=== PATIENT | male | born 1970 | race Two or more races ===

== ENCOUNTER 2020-04-23 13:54 | Inpatient (IN) | payer BC, OTHER ==
[~2020-04-23] VITALS: Ht 170.2 cm; Wt 75.7 kg
--- NOTE | 2020-04-23 14:00 | NUR ---
placed on nrb 15l. satting 96%. vs checked. hooken on monitor. iv access started blood draw done sent to lab.
[2020-04-23] MEDS ORDERED: LOSA50TA39 PO (14:37)
[2020-04-23] MEDS ORDERED: FLUT1DIS3 IH (14:37)
[2020-04-23] MEDS ORDERED: MONT10TA22 PO (14:37)
[2020-04-23] MEDS ORDERED: ACET-2605 PO (14:37)
[2020-04-23] MEDS ORDERED: ALBU1.257 IH (14:37)
[2020-04-23] MEDS ORDERED: IBUP-51 PO (14:37)
[2020-04-23] MEDS ORDERED: ALBUTEROL FS 2.5 MG/3 ML VIAL.NEB ONE (14:41)
[2020-04-23 14:46] LABS: BASOPHILS % (AUTO) 0.3 % (0.0-2.0); EOSINOPHILS % (AUTO) 2.1 % (0.0-6.0); HEMATOCRIT 42 % (39-51); HEMOGLOBIN 13.9 g/dL (13.5-17.5); LYMPHOCYTES # (AUTO) 0.8 /CMM (0.8-4.8); LYMPHOCYTES % (AUTO) 5.6 % (20.0-44.0); MEAN CORPUSCULAR HGB CONC 33 g/dl (31.0-36.0); MEAN CORPUSCULAR VOLUME 93 fL (80-96); MONOCYTES # (AUTO) 0.3 /CMM (0.1-1.30); MONOCYTES % (AUTO) 2.5 % (2.0-12.0); NEUTROPHILS # (AUTO) 12.6 /CMM (1.8-8.9); NEUTROPHILS % (AUTO) 89.5 % (43.0-81.0); PLATELET COUNT (AUTO) 215 /CMM (150-450); RED BLOOD CELL COUNT(AUTO) 4.47 MIL/uL (4.5-6.0)
[2020-04-23] MEDS ORDERED: ACETAMINOPHEN 325 MG TABLET ONE ×2 (14:53→22:11)
[2020-04-23] MEDS ORDERED: methylPREDNISolone SOD SUCC 125 MG/2ML VIAL ONE (14:53)
[2020-04-23] MEDS ORDERED: ALBUTEROL FS 2.5 MG/3 ML VIAL.NEB NEB ONE (15:00)
[2020-04-23] MEDS ORDERED: methylPREDNISolone SOD SUCC 125 MG/2ML VIAL IV ONE (15:00)
[2020-04-23] MEDS ORDERED: ACETAMINOPHEN 325 MG TABLET PO ONE (15:00)
--- NOTE | 2020-04-23 15:00 | NUR ---
asked dr. dunn is we can put pt on hiflow o2, pt desatting on nrb at 15L only satting at 89-90%. stgilated casandra. rt called. hi flow o2 started 60L/100% now satting at 98%
[2020-04-23 15:09] LABS: ALANINE AMINOTRANSFERASE 67 U/L (12-78); ALBUMIN 2.5 g/dL (3.4-5.0); ALKALINE PHOSPHATASE 200 U/L (46-116); ASPARTATE AMINOTRANSFERASE 47 U/L (15-37); B-TYPE NATRIURETIC PEPTIDE 736 PG/ML (0-125); BILIRUBIN,TOTAL 0.9 mg/dL (0.2-1.0); CALCIUM, SERUM 8.5 mg/dL (8.5-10.1); CARBON DIOXIDE 25 mmol/L (21-32); CHLORIDE 105 mmol/L (98-107); CREATININE 1.3 mg/dL (0.6-1.3); GLUCOSE 98 mg/dL (74-106); POTASSIUM 3.4 mmol/L (3.5-5.1); SODIUM SERUM 140 mmol/L (136-145); UREA NITROGEN, BLOOD 14 mg/dL (7-18)
[2020-04-23 16:05] LABS: CREATINE KINASE, TOTAL 88 U/L (39-308); FERRITIN 647 ng/mL (8-388)
[2020-04-23 16:09] LABS: C-REACTIVE PROTEIN 16.9 mg/dL (0.0-0.9)
[2020-04-23 16:23] LABS: ABG BASE EXCESS -0.4 mmol/L; ABG OXYGEN SATURATION 94.4 % (92.0-98.5); ABG PCO2 26.7 mmHg (35.0-45.0); ABG PH 7.516 (7.350-7.450); ABG PO2 71.4 mmHg (75.0-100.0); AaDO2 614.9 mmHg; COHb 0.5 % (0.5-1.5); MetHb 0.5 % (0.0-1.5); O2Hb 93.5 % (94.0-97.0); SITE, ABG Right Radial; VENT MODE, BG HFNC 60L 100%
[2020-04-23] MEDS ORDERED: HYDROCODONE/APAP 5/325MG TABLET PO PRN (16:30)
[2020-04-23] MEDS ORDERED: MAG HYDROX/AL HYDROX/SIMETH 30 ML UDC PO PRN (16:30)
[2020-04-23] MEDS ORDERED: Z GUARD REMEDY 2 OZ OINT TP PRN (16:30)
[2020-04-23] MEDS ORDERED: ENOXAPARIN SODIUM 80 MG/0.8 ML DISP.SYRIN SQ ONE ×2 (16:30→17:13)
[2020-04-23] MEDS ORDERED: ONDANSETRON HCL/PF 4 MG/2 ML VIAL IVP PRN (16:30)
[2020-04-23] MEDS ORDERED: ZOLPIDEM TARTRATE 5 MG TABLET PO PRN (16:30)
[2020-04-23] MEDS ORDERED: MAGNESIUM HYDROXIDE 30 ML UDC PO PRN (16:30)
--- NOTE | 2020-04-23 16:34 | NUR ---
BED 259 ICU
[2020-04-23 16:51] LABS: D-DIMER 35.2 mg/L(FEU (0.17-0.50)
[2020-04-23] MEDS: IBUPROFEN 200 MG TABLET PO PRN (18:04)
[2020-04-23] MEDS ORDERED: IBUPROFEN 400 MG TABLET ONE (18:05)
[2020-04-23 18:52] LABS: BILIRUBIN,DIRECT 0.5 mg/dL (0.0-0.2)
--- NOTE | 2020-04-23 19:10 | NUR ---
REC'D REPORT FROM ANGIE WHEAT. PT PRESENTS TO THE ER C/O SOB 75% WITH A COVID POSITIVE IB 04/09. PT IS A&OX4. PT SKIN IS WARM AND INTACT. MILD LABORED BREATHING, BUT ABLE TO SPEAK FULL SENTENCES. PT ATTACHED TO HIGH FLOW O2 60L AND SATING 90S. PT MADE COMFORTABLE, SITTING UPRIGHT WITH BLANKET. ATTACHED TO MONITOR AND POX. CALL LIGHT WITHIN REACH. WILL CONTINUE TO MONITOR.
--- NOTE | 2020-04-23 19:20 | NUR ---
report given to young castro for homer
--- NOTE | 2020-04-23 20:27 | NUR ---
CALLED LAB FOR COVID SWAB
[2020-04-23] MEDS: ACETAMINOPHEN 325 MG TABLET PO PRN (22:05)
--- NOTE | 2020-04-23 23:01 | NUR ---
GAVE REPORT TO ANGIE CHAMBERLAIN FOR RACHEL
[2020-04-23 23:30] VITALS: BP 144/90
--- NOTE | 2020-04-23 23:30 | NUR ---
rn clinical documentation specialist admitting notes received pt from er safely transferred to bed , rt at bedside, pt is on highflow at 60lpm. at this time tolerating weel, sp02 94-98%. awake alert and oriented x4, noted sob on exertion and while speaking, on cardiac tele monitor sr 96. iv site to left hand #20 g intact and patent, no redness, no infiltration present, flushed and patent. oriented to staff and call light and kept within reach safety precautions rendered, low bed and locked, toileting offered, urinal at bedside, belongings list done. fluids and snack offered, discussed plan of care, remains comfortable will continue to monitor.
--- NOTE | 2020-04-24 00:06 | NUR ---
science intern notes pt requested for motrin to avoid having chills, states hes been managing his symptoms with motrin around the clock, motrin prn as ordered given.
[2020-04-24] MEDS: IBUPROFEN 200 MG TABLET PO PRN ×2 (00:07→08:01)
[2020-04-24] MEDS: ACETAMINOPHEN 325 MG TABLET PO PRN ×3 (04:07→21:27)
--- NOTE | 2020-04-24 04:08 | NUR ---
rn notes patient request for tylenol around the clock to avoid chils, prn tylenol as ordered given, will continue to monitor.
[2020-04-24 04:30] VITALS: BP 136/91
--- NOTE | 2020-04-24 06:05 | NUR ---
charcoal burner beehive kiln notes made hospitalist aware pt requesting for albuterol . albuterol inh ordered noted and carried out, pt uses inhaler at home.
--- NOTE | 2020-04-24 06:17 | NUR ---
journeyman apprentice electricians closing notes pt in bed sitting up in bed , head of bed elevated,pt is on highflow at 60lpm, at this time tolerating well, sp02 94-95%. awake alert and oriented x4, noted sob on exertion and while speaking, patient has been sr throughout shift hr 95, current cardiac monitoring system is down at this time. iv site to left hand #20 g intact and patent, no redness, no infiltration present, flushed and patent. slept for about 4 hours encouraged proning and done, call light kept within reach safety precautions rendered, low bed and locked, toileting needs met, hygiene needs met, urinal at bedside, fluids and snack offered, remains comfortable will continue to monitor and endorse to next shift.
[2020-04-24 07:08] LABS: BASOPHILS % (AUTO) 0.2 % (0.0-2.0); HEMATOCRIT 39 % (39-51); HEMOGLOBIN 13.1 g/dL (13.5-17.5); LYMPHOCYTES # (AUTO) 0.5 /CMM (0.8-4.8); LYMPHOCYTES % (AUTO) 4.9 % (20.0-44.0); MEAN CORPUSCULAR HGB CONC 34 g/dl (31.0-36.0); MEAN CORPUSCULAR VOLUME 92 fL (80-96); MONOCYTES # (AUTO) 0.3 /CMM (0.1-1.30); MONOCYTES % (AUTO) 2.7 % (2.0-12.0); NEUTROPHILS # (AUTO) 9.3 /CMM (1.8-8.9); NEUTROPHILS % (AUTO) 92.2 % (43.0-81.0); PLATELET COUNT (AUTO) 210 /CMM (150-450); RED BLOOD CELL COUNT(AUTO) 4.25 MIL/uL (4.5-6.0); WHITE BLOOD COUNT (AUTO) 10.1 K/uL (4.3-11.0)
[2020-04-24 07:33] LABS: CALCIUM, SERUM 8.2 mg/dL (8.5-10.1); MAGNESIUM 2.4 mg/dL (1.8-2.4); PHOSPHORUS 3.5 mg/dL (2.5-4.9); POTASSIUM 4.2 mmol/L (3.5-5.1)
--- NOTE | 2020-04-24 07:44 | NUR ---
RN Opening Note Client recieved in bed sitting semi-fowlers, A&Ox4, belarusian speaking, and able to make needs known. No S/S of distress. environmental monitoring specialist on with tele reading of normal sinus. Client has left hand peripheral line # 20 keith. IV intact and patent. Client on high flow oxygen at 60 LPM. Patient currently sating at 98%. Tolerating well. Client skin intact. Client gate steady but gets SOB. Safety preacautions implemented. Pt side rails up x2 with call light within reach. Will continue to monitor and provide care.
[2020-04-24 08:00] VITALS: BP 146/90
[2020-04-24] MEDS: MONTELUKAST SODIUM (10MG) 10 MG TABLET PO SCH (08:05)
[2020-04-24] MEDS: APIXABAN 5 MG TABLET PO SCH ×2 (08:06→16:26)
[2020-04-24] MEDS: DEXAMETHASONE SOD PHOSPHATE 10 MG/ML VIAL IV SCH (08:07)
[2020-04-24] MEDS: LOSARTAN POTASSIUM 50 MG TABLET PO SCH (08:08)
[2020-04-24 09:29] LABS: LYMPHOCYTES % (MANUAL) 5 % (16-48); MONOCYTES % (MANUAL) 5 % (0-11.0); MYELOCYTES % 3 % (0-0); NEUTROPHILS % (MANUAL) 87 (42-76)
[2020-04-24] MEDS: FLUTICASONE/VILANTEROL 1 EACH BLST.W.DEV IH SCH (11:23)
[2020-04-24 12:00] VITALS: BP 125/54
[2020-04-24] MEDS ORDERED: REMDESIVIR (CHARGED) 200 MG, *LOADING DOSE 1 EA in IV NS 0.9% 210 ML IV ONE (13:30)
[2020-04-24] MEDS ORDERED: REMDESIVIR (CHARGED) 200 MG in IV NS 0.9% 250 ML IV ONE (15:00)
[2020-04-24 16:00] VITALS: BP 152/94
[2020-04-24] MEDS: ALBUTEROL SULFATE INH 18 GM HFA.AER.AD IH PRN (16:40)
--- NOTE | 2020-04-24 18:38 | NUR ---
RN cLOSING Note Client care transferred over to upcoming shift. Client in bed sitting semi-fowlers, A&Ox4, pashto speaking, and able to make needs known. No S/S of distress. secured entrance monitor on with tele reading of normal sinus. Client has left hand peripheral line # 20 keith. IV intact and patent. Client on high flow oxygen at 60 LPM. Patient currently satting at 98%. Remdesivir ordered by MD and admnistered. Pt tolerated well. 0.9% NS currently running via Left hand peripheral line TKO at 10 mL/hr. Client tolerating well. Client skin intact. Client gate steady but still gets SOB upon activity. Safety preacautions implemented. Pt side rails up x2 with call light within reach. Client care and continued monitoring will be endorsed to next shift.
--- NOTE | 2020-04-24 19:36 | NUR ---
TESTING SHAKING SHIPPING NOTES PATIENT IN BED, AWAKE, ALERT AND ORIENTED X 4. BREATHING EVEN AND UNLABORED ON HIGH FLOW NC 60LPM. SHOWS NO SIGNS OF ACUTE RESPIRATORY DISTRESS, NO ACUTE PAIN. IV ON L HAND 20G TKO SHOWS NO SIGNS OF INFILTRATION, NO REDNESS. FLUSHING WELL. SAFETY PRECAUTIONS IN PLACE. BED IN LOWEST POSITION, LOCKED, AND CALL LIGHT KEPT WITHIN REACH. WILL CONTINUE TO MONITOR.
[2020-04-24 20:00] VITALS: BP 134/81
[2020-04-25] VITALS (10 sets, daily range): BP systolic 110–147; BP diastolic 67–88
--- NOTE | 2020-04-25 05:48 | NUR ---
PATIENT RECEIVED ON HFNC 60L 100%, TOLERATING WITH NO DISTRESS, REMAINED ALERT, ORIENTED, AND STABLE. AMBU BAG AT BEDSIDE. AIRVO ALARM AUDIBLE AND VISIBLE. Addendum: 04/25/20 at 0549 by DINA MASSEY RT Amended: Links added.
[2020-04-25] MEDS: GUAIFENESIN 300 MG/15 ML UDC PO PRN ×3 (06:27→23:11)
[2020-04-25] MEDS: ACETAMINOPHEN 325 MG TABLET PO PRN ×2 (06:38→23:11)
--- NOTE | 2020-04-25 07:10 | NUR ---
ELECTROLYSIST NOTES PATIENT IN BED, ASLEEP, ALERT AND ORIENTED X 4. BREATHING EVEN AND UNLABORED ON HIGH FLOW NC 60LPM. SHOWS NO SIGNS OF ACUTE RESPIRATORY DISTRESS, NO ACUTE PAIN. IV ON L HAND 20G TKO SHOWS NO SIGNS OF INFILTRATION, NO REDNESS. FLUSHING WELL. ALL DUE MEDICATIONS GIVEN. ALL NEEDS ATTENDED TO. SAFETY PRECAUTIONS IN PLACE. BED IN LOWEST POSITION, LOCKED, AND CALL LIGHT KEPT WITHIN REACH. WILL CONTINUE TO MONITOR.
[2020-04-25 07:15] LABS: BASOPHILS % (AUTO) 0.1 % (0.0-2.0); EOSINOPHILS % (AUTO) 0.1 % (0.0-6.0); HEMATOCRIT 39 % (39-51); HEMOGLOBIN 12.5 g/dL (13.5-17.5); LYMPHOCYTES # (AUTO) 0.7 /CMM (0.8-4.8); MEAN CORPUSCULAR HGB CONC 32 g/dl (31.0-36.0); MEAN CORPUSCULAR VOLUME 96 fL (80-96); MONOCYTES # (AUTO) 0.7 /CMM (0.1-1.30); MONOCYTES % (AUTO) 3.7 % (2.0-12.0); NEUTROPHILS # (AUTO) 16.5 /CMM (1.8-8.9); NEUTROPHILS % (AUTO) 92.1 % (43.0-81.0); PLATELET COUNT (AUTO) 226 /CMM (150-450); RED BLOOD CELL COUNT(AUTO) 4.11 MIL/uL (4.5-6.0); WHITE BLOOD COUNT (AUTO) 17.9 K/uL (4.3-11.0)
[2020-04-25 07:21] LABS: ALBUMIN 2.2 g/dL (3.4-5.0); BILIRUBIN,DIRECT 0.2 mg/dL (0.0-0.2); BILIRUBIN,TOTAL 0.6 mg/dL (0.2-1.0); CALCIUM, SERUM 8.3 mg/dL (8.5-10.1); POTASSIUM 4.2 mmol/L (3.5-5.1)
--- NOTE | 2020-04-25 07:58 | NUR ---
RN OPEN NOTES PATIENT IS A/O X 4 WITH NO SIGNS OF DISTRESS ON 60LMP HIGH FLOW. L HAND #20G SL. NO COMPLAIN OF PAIN AT THIS TIME. SAFETY MEASURES ARE APPLIED, BED IS IN LOW POSITION SIDE RAILS UP X 2. CALL LIGHT WITHIN REACH. WILL CONTINUE TO MONITOR.
[2020-04-25] MEDS: FLUTICASONE/VILANTEROL 1 EACH BLST.W.DEV IH SCH (09:00)
[2020-04-25] MEDS: APIXABAN 5 MG TABLET PO SCH ×2 (09:57→16:35)
[2020-04-25] MEDS: MONTELUKAST SODIUM (10MG) 10 MG TABLET PO SCH (09:57)
[2020-04-25] MEDS: LOSARTAN POTASSIUM 50 MG TABLET PO SCH (09:58)
[2020-04-25] MEDS: DEXAMETHASONE SOD PHOSPHATE 10 MG/ML VIAL IV SCH (09:58)
[2020-04-25] MEDS: ALBUTEROL SULFATE INH 18 GM HFA.AER.AD IH PRN (10:08)
--- NOTE | 2020-04-25 12:40 | NUR ---
VERIFIED CONVALESCENT PLASMA WITH ANOTHER RN, NEEDED TO OVERRIDE AND CO SIGNED BY A SECOND RN. PATIENT VITALS ARE WITHIN NORMAL LIMIT AFEBRILE. EDUCATED PATIENT TO REPORT ANY CHILLS, FLANK PAIN AND ANY SOB. PATIENT REPEATED BACK UNDERSTANDING.
[2020-04-25] MEDS ORDERED: NS 0.9% IV SCH (13:00)
[2020-04-25] MEDS ORDERED: REMDESIVIR IV SCH (13:00)
[2020-04-25] MEDS ORDERED: REMDESIVIR (CHARGED) 100 MG in IV NS 0.9% 230 ML IV SCH (13:30)
[2020-04-25] MEDS: REMDESIVIR (CHARGED) 100 MG in IV NS 0.9% 100 ML IV SCH (15:49)
--- NOTE | 2020-04-25 19:25 | NUR ---
RN OPENING NOTES RECEIVED PT IN BED. A/O X4, PT CALM AND COOPERATIVE. PT IS ON HIGH FLOW AT 55LPM OF O2 FIO2 100%. TOLERATING WELL NO S/S OF RESP DISTRESS OR SOB. BREATHING IS EVEN AND UNLABORED. O2 SAT IS 98%. PT ON STAGE ELECTRICIAN HELPER DISPLAYS, NSR WITH HEART RATE OF 75 AT THIS TIME. PT IS AMBULATORY. IV SITE, LEFT HAND PATENT FLUSHED ASEPTICALLY. PT DENIES PAIN AT THIS TIME. SAFETY MEASURES IN PLACE. HOB ELEVATED. SIDE RAILS UP X2 BED LOCKED IN LOWEST POSITION CALL LIGHT WITHIN REACH. WILL CONTINUE TO MONITOR.
--- NOTE | 2020-04-25 19:39 | NUR ---
RN CLOSED NOTES PATIENT IS A/O X 4 WITH NO SIGNS OF DISTRESS ON 55LMP HIGH FLOW SPO2 99%. L HAND #20G SL. NO COMPLAIN OF PAIN AT THIS TIME. PATIENT KEPT CLEAN AND DRY. ALL NEEDS, CARE, TREATMENT, AND MEDICATIONS WERE ADMINISTERED ANTICIPATED PER ORDER. SAFETY MEASURES ARE APPLIED, BED IS IN LOW POSITION SIDE RAILS UP X 2. CALL LIGHT WITHIN REACH WILL ENDORSE TO THE BOOMSWING OPERATOR NURSE.
--- NOTE | 2020-04-25 21:00 | NUR ---
UNABLE TO SCAN INHALER DUE TO BEING AT BEDSIDE IN PT ROOM. PT USED INHALER PRN ORDERED FOR SOB, AFTER USING INHALER PT VERBALIZED IMPROVEMENT. TOLERATING HIGH FLOW STILL. O2 SAT 96% WILL CONT TO MONITOR.
--- NOTE | 2020-04-25 23:12 | NUR ---
PT REQUESTS TYLENOL AND ROBITUSSIN FOR GENERALIZED PAIN AND COUGHING. WILL ADMINISTER PRN ORDERED.
[2020-04-26] VITALS: BP 109/80
--- NOTE | 2020-04-26 03:30 | NUR ---
PT REFUSES BED BATH, INDEPENDENT TO SELF CARE. HYGIENE PRODUCTS PROVIDED. WILL CONTINUE TO MONITOR
[2020-04-26 04:00] VITALS: BP 130/77
[2020-04-26] MEDS: GUAIFENESIN 300 MG/15 ML UDC PO PRN ×2 (05:20→22:15)
--- NOTE | 2020-04-26 05:26 | NUR ---
PT REQUESTS ANOTHER PRN ROBITUSSIN FOR COUGH FOR COMFORT IN HOPES OF GETTING MORE REST, ADMINISTERED PRN ORDERED Q6H. WILL CONT TO MONITOR
--- NOTE | 2020-04-26 06:49 | NUR ---
RN CLOSING NOTES NO SIGNIFICANT CHANGES, PT RESTED WELL THROUGHOUT THE NIGHT. PT IS STILL HIGH FLOW AT 55LPM AT FIO2 OF 100%. NO S/S OF RESP DISTRESS OR SOB. BREATHING IS EVEN AND UNLABORED. O2 SAT IS 98%. PT ON LINK AND LINK KNITTING MACHINE OPERATOR DISPLAYS, NSR WITH HEART RATE OF 71 AT THIS TIME. PT DENIES PAIN AT THIS TIME. AFEBRILE. NEEDS ATTENDED. SAFETY MEASURES IN PLACE. HOB ELEVATED. SIDE RAILS UP X2 BED LOCKED IN LOWEST POSITION CALL LIGHT WITHIN REACH. WILL ENDORSE TO AM NURSE FOR CONTINUATION OF CARE.
[2020-04-26 06:56] LABS: BASOPHILS % (AUTO) 0.1 % (0.0-2.0); EOSINOPHILS % (AUTO) 0.2 % (0.0-6.0); HEMATOCRIT 37 % (39-51); HEMOGLOBIN 12.2 g/dL (13.5-17.5); LYMPHOCYTES # (AUTO) 0.6 /CMM (0.8-4.8); LYMPHOCYTES % (AUTO) 5.5 % (20.0-44.0); MEAN CORPUSCULAR HGB CONC 33 g/dl (31.0-36.0); MEAN CORPUSCULAR VOLUME 93 fL (80-96); MONOCYTES # (AUTO) 0.7 /CMM (0.1-1.30); MONOCYTES % (AUTO) 6.3 % (2.0-12.0); NEUTROPHILS # (AUTO) 10.1 /CMM (1.8-8.9); NEUTROPHILS % (AUTO) 87.9 % (43.0-81.0); PLATELET COUNT (AUTO) 212 /CMM (150-450); WHITE BLOOD COUNT (AUTO) 11.5 K/uL (4.3-11.0)
--- NOTE | 2020-04-26 07:30 | NUR ---
MAINTENANCE HELPER NOTES PT IN BED, AWAKE, ALERT AND ORIENTED, ON HIGH FLOW O2, NO COMPLAINT OF SOB, NO COMPLAINT OF PAIN, ABLE TO WALK TO THE BATHROOM, CALL LIGHT WITHIN REACH, NEEDS ATTENDED.
[2020-04-26 08:00] VITALS: BP 127/76
[2020-04-26] MEDS: LOSARTAN POTASSIUM 50 MG TABLET PO SCH (08:54)
[2020-04-26] MEDS: MONTELUKAST SODIUM (10MG) 10 MG TABLET PO SCH (08:54)
[2020-04-26] MEDS: DEXAMETHASONE SOD PHOSPHATE 10 MG/ML VIAL IV SCH (08:54)
[2020-04-26] MEDS: APIXABAN 5 MG TABLET PO SCH ×2 (08:55→17:29)
[2020-04-26] MEDS: FLUTICASONE/VILANTEROL 1 EACH BLST.W.DEV IH SCH (09:16)
[2020-04-26 09:28] LABS: ALBUMIN 2.3 g/dL (3.4-5.0); BILIRUBIN,DIRECT 0.1 mg/dL (0.0-0.2); BILIRUBIN,TOTAL 0.8 mg/dL (0.2-1.0); CALCIUM, SERUM 8.2 mg/dL (8.5-10.1); CREATININE 1.1 mg/dL (0.6-1.3); POTASSIUM 4.2 mmol/L (3.5-5.1); TOTAL PROTEIN, SERUM 6.2 g/dL (6.4-8.2)
[2020-04-26 12:00] VITALS: BP 103/65
[2020-04-26] MEDS: REMDESIVIR (CHARGED) 100 MG in IV NS 0.9% 100 ML IV SCH (14:59)
[2020-04-26 16:00] VITALS: BP 116/64
--- NOTE | 2020-04-26 18:31 | NUR ---
HEALTHCARE CONSULTANT NOTES PT AWAKE, SITTING IN HIS CHAIR, NO SOB NOTED, NO COMPLAINT OF PAIN, ON HIGH FLOW O2 ORDERED, CALL LIGHT WITHIN REACH, SEEN AND EXAMINED BY DR. BEY, PM MEDS GIVEN, NEEDS ATTENDED.
[2020-04-26 20:00] VITALS: BP 100/53
[2020-04-26] MEDS: ACETAMINOPHEN 325 MG TABLET PO PRN (22:15)
[2020-04-27] VITALS: BP 132/87
[2020-04-27] MEDS: ACETAMINOPHEN 325 MG TABLET PO PRN ×2 (03:10→22:25)
[2020-04-27 04:00] VITALS: BP 124/73
[2020-04-27 06:19] LABS: BASOPHILS % (AUTO) 0.1 % (0.0-2.0); EOSINOPHILS % (AUTO) 0.3 % (0.0-6.0); HEMATOCRIT 39 % (39-51); HEMOGLOBIN 12.5 g/dL (13.5-17.5); LYMPHOCYTES # (AUTO) 0.8 /CMM (0.8-4.8); MEAN CORPUSCULAR HGB CONC 33 g/dl (31.0-36.0); MEAN CORPUSCULAR VOLUME 93 fL (80-96); MONOCYTES # (AUTO) 0.8 /CMM (0.1-1.30); MONOCYTES % (AUTO) 7.1 % (2.0-12.0); NEUTROPHILS # (AUTO) 9.7 /CMM (1.8-8.9); NEUTROPHILS % (AUTO) 85.5 % (43.0-81.0); PLATELET COUNT (AUTO) 203 /CMM (150-450); RED BLOOD CELL COUNT(AUTO) 4.13 MIL/uL (4.5-6.0); WHITE BLOOD COUNT (AUTO) 11.3 K/uL (4.3-11.0)
[2020-04-27 06:40] LABS: ALBUMIN 2.4 g/dL (3.4-5.0); BILIRUBIN,DIRECT 0.2 mg/dL (0.0-0.2); BILIRUBIN,TOTAL 0.8 mg/dL (0.2-1.0); CALCIUM, SERUM 8.3 mg/dL (8.5-10.1); CREATININE 0.9 mg/dL (0.6-1.3); POTASSIUM 4.2 mmol/L (3.5-5.1); TOTAL PROTEIN, SERUM 6.1 g/dL (6.4-8.2)
[2020-04-27 08:00] VITALS: BP 124/73
--- NOTE | 2020-04-27 08:00 | NUR ---
senior telecommunications engineer note patient in bed all needs attended, on high anam 45l 8=96% saturation 98% at this time,, rt hand hl intact and flushed well , bed in lowest and locked position, will cont to monitor
[2020-04-27] MEDS: MONTELUKAST SODIUM (10MG) 10 MG TABLET PO SCH (08:36)
[2020-04-27] MEDS: LOSARTAN POTASSIUM 50 MG TABLET PO SCH ×2 (08:36→09:00)
[2020-04-27] MEDS: DEXAMETHASONE SOD PHOSPHATE 10 MG/ML VIAL IV SCH (08:36)
[2020-04-27] MEDS: APIXABAN 5 MG TABLET PO SCH ×2 (08:37→16:23)
[2020-04-27] MEDS: ALBUTEROL SULFATE INH 18 GM HFA.AER.AD IH PRN (08:48)
[2020-04-27] MEDS: FLUTICASONE/VILANTEROL 1 EACH BLST.W.DEV IH SCH (08:48)
--- NOTE | 2020-04-27 11:01 | NUR ---
PINMAKER NOTE DR MI AT BEDSIDE OK TO CONT TX
[2020-04-27 12:00] VITALS: BP 91/58
--- NOTE | 2020-04-27 12:46 | NUR ---
television and radio repairer note up on chair not in distress
[2020-04-27] MEDS: REMDESIVIR (CHARGED) 100 MG in IV NS 0.9% 100 ML IV SCH (14:50)
--- NOTE | 2020-04-27 15:30 | NUR ---
PLATFORM SOFTWARE ENGINEER NOTE ALL NEEDS ATTENDED [id number] , WILL CONT TO MONITOR
[2020-04-27 16:00] VITALS: BP 96/61
--- NOTE | 2020-04-27 18:32 | NUR ---
ACCOUNT SUPPORT ANALYST NOTE SITTING UP ON CHAIR , NO SOB NOTED AT THIS TIME ,SATURATION 96% CALL LIGHT WITHIN REACH, WILL MONITOR
--- NOTE | 2020-04-27 19:45 | NUR ---
RN OPENING NOTES RECEIVED PT IN BED. A/O X4, PT CALM AND COOPERATIVE. PT IS ON HIGH FLOW AT 50LPM OF O2 FIO2 80%. TOLERATING WELL NO S/S OF RESP DISTRESS OR SOB. BREATHING IS EVEN AND UNLABORED. O2 SAT IS 98%. PT ON SAFETY SEALER DISPLAYS, NSR WITH HEART RATE OF 86 AT THIS TIME. PT IS AMBULATORY. IV SITE, LEFT HAND PATENT FLUSHED ASEPTICALLY. PT DENIES PAIN AT THIS TIME. SAFETY MEASURES IN PLACE. HOB ELEVATED. SIDE RAILS UP X2 BED LOCKED IN LOWEST POSITION CALL LIGHT WITHIN REACH. WILL CONTINUE TO MONITOR.
[2020-04-27 20:00] VITALS: BP 98/59
--- NOTE | 2020-04-27 20:22 | NUR ---
RT NOTE PT RECEIVED ON HIGH FLOW 50LPM @ 80%. PT SITTING ON CHAIR. AWAKE/ALERT. NO RESPIRATORY DISTRESS NOTED. WATER BAG 04/26 FULL. WILL CONTINUE TO MONITOR T/O SHIFT. Addendum: 04/27/20 at 2022 by RONY PEOPLES RT Amended: Links added.
[2020-04-27] MEDS: GUAIFENESIN 300 MG/15 ML UDC PO PRN (22:25)
[2020-04-28] VITALS: BP 128/90
[2020-04-28 04:00] VITALS: BP 128/88
[2020-04-28] MEDS: GUAIFENESIN 300 MG/15 ML UDC PO PRN (06:33)
[2020-04-28 07:10] LABS: BASOPHILS % (AUTO) 0.2 % (0.0-2.0); EOSINOPHILS % (AUTO) 0.7 % (0.0-6.0); HEMATOCRIT 39 % (39-51); HEMOGLOBIN 12.6 g/dL (13.5-17.5); LYMPHOCYTES % (AUTO) 8.4 % (20.0-44.0); MEAN CORPUSCULAR HGB CONC 32 g/dl (31.0-36.0); MEAN CORPUSCULAR VOLUME 93 fL (80-96); MONOCYTES % (AUTO) 8.9 % (2.0-12.0); NEUTROPHILS # (AUTO) 9.5 /CMM (1.8-8.9); NEUTROPHILS % (AUTO) 81.8 % (43.0-81.0); PLATELET COUNT (AUTO) 209 /CMM (150-450); RED BLOOD CELL COUNT(AUTO) 4.17 MIL/uL (4.5-6.0); WHITE BLOOD COUNT (AUTO) 11.6 K/uL (4.3-11.0)
[2020-04-28 07:12] LABS: ALBUMIN 2.4 g/dL (3.4-5.0); BILIRUBIN,DIRECT 0.2 mg/dL (0.0-0.2); BILIRUBIN,TOTAL 0.8 mg/dL (0.2-1.0); CALCIUM, SERUM 8.5 mg/dL (8.5-10.1); CREATININE 0.9 mg/dL (0.6-1.3); POTASSIUM 4.2 mmol/L (3.5-5.1)
--- NOTE | 2020-04-28 07:30 | NUR ---
TELE/RN OPENING NOTE THE PATIENT IS RECEIVED IN BED. PATIENT IS ALERT AND ORIENTED X4. PATIENT IS ON HIGH FLOW OXYGEN AT 50L /80%. PATIENT HAS SOB WITH EXERTION. RESPIRATION REGULAR AND UNLABORED AT THIS TIME. DENIES PAIN. LEFT HAND G 20 PATENT AND SALINE LOCKED. TELE BOX SHOWS SINUS RHYTHM. BED LOW AND LOCKED. SIDE RAILS UP X2. CALL LIGHT WITHIN REACH. WILL CONTINUE TO MONITOR.
--- NOTE | 2020-04-28 07:50 | NUR ---
RN CLOSING NOTES NO CHANGE IN CONDITION THROUGHOUT THE NIGHT. PT RESTED WELL. JUST REQUEST PRN OF TYLENOL AND ROBITUSSIN, PT STILL ON HIGH FLOW AT 55LPM OF O2 FIO2 100%. TOLERATING WELL NO S/S OF RESP DISTRESS OR SOB. BREATHING IS EVEN AND UNLABORED. O2 SAT IS 98%. PT ON VEGETABLE TRIMMER DISPLAYS, NSR WITH HEART RATE OF 75 AT THIS TIME. PT IS AMBULATORY. IV SITE, LEFT HAND PATENT FLUSHED ASEPTICALLY. NEEDS ATTENDED PT DENIES PAIN AT THIS TIME. SAFETY MEASURES IN PLACE. HOB ELEVATED. SIDE RAILS UP X2 BED LOCKED IN LOWEST POSITION CALL LIGHT WITHIN REACH. WILL ENDORSE TO AM NURSE.
[2020-04-28 08:00] VITALS: BP 110/75
[2020-04-28] MEDS: LOSARTAN POTASSIUM 50 MG TABLET PO SCH (09:00)
[2020-04-28] MEDS: FLUTICASONE/VILANTEROL 1 EACH BLST.W.DEV IH SCH (09:00)
[2020-04-28] MEDS: MONTELUKAST SODIUM (10MG) 10 MG TABLET PO SCH (09:26)
[2020-04-28] MEDS: DEXAMETHASONE SOD PHOSPHATE 10 MG/ML VIAL IV SCH (09:26)
[2020-04-28] MEDS: APIXABAN 5 MG TABLET PO SCH ×2 (09:29→16:48)
[2020-04-28 10:02] LABS: BAND % (MANUAL) 4 % (0.0-5.0); EOSINOPHILS % (MANUAL) 1 % (0-4); LYMPHOCYTES % (MANUAL) 6 % (16-48); MONOCYTES % (MANUAL) 6 % (0-11.0); NEUTROPHILS % (MANUAL) 83 (42-76)
--- NOTE | 2020-04-28 10:43 | NUR ---
TELE/RN NOTE THE PATIENT IS ALERT AND ORIENTED X4. DENIES PAIN AT THIS TIME. THE PATIENT IS ON HIGH FLOW OXYGEN AT 50L/ 70%. PATIENT VERBALIZES SOB WITH EXERTION. PATIENT IS ENCOURAGED REST. RESPIRATION REGULAR WITH EPISODES OF SOB. TELE BOX READING IS SR 94. LEFT HAND G 20 PATENT AND SALINE LOCKED. BED LOW AND LOCKED. SIDE RAILS UP 2. CALL LIGHT WITHIN REACH. ENDORSEMENT GIVEN TO NURSE
--- NOTE | 2020-04-28 11:00 | NUR ---
tele wire coiner: notes received pt sitting up in chair on a high flow oxygen 50 liter of flow on 70% fio2, satting at 93%. awake, a/ox4. still weak, able to move freely. instructed to call for assistance. will continue to monitor.
[2020-04-28] MEDS: PANTOPRAZOLE 40 MG TABLET.DR PO SCH (11:10)
[2020-04-28 12:00] VITALS: BP 100/53
--- NOTE | 2020-04-28 12:00 | NUR ---
tele continuous process machine operator: notes lunch served at this time. instructed to call for assistance.
--- NOTE | 2020-04-28 14:00 | NUR ---
tele supervisor instrument mechanics: notes pt remains on a high flow oxygen 50 liter on 70% fio2, satting at 93%-95%. pt remains sinus rhythm. will continue to monitor.
[2020-04-28] MEDS: REMDESIVIR (CHARGED) 100 MG in IV NS 0.9% 100 ML IV SCH (15:04)
[2020-04-28 16:00] VITALS: BP 99/52
--- NOTE | 2020-04-28 18:27 | NUR ---
tele vp ad sales west: notes pt resting comfortable in chair. needs attended. pt remains on a high flow oxygen 50 liter of flow on 70% fio2, satting at 93%-96 %. instructed to call for assistance. will continue to monitor.
--- NOTE | 2020-04-28 19:14 | NUR ---
tele map clerk: notes report given to sharan wade) for continuity of care.
--- NOTE | 2020-04-28 19:30 | NUR ---
TELE/RN OPENING NOTE RECEIVED PATIENT RESTING IN BED. PATIENT IS ALERT AND ORIENTED X4. PATIENT IS ON HIGH FLOW OXYGEN AT 50L /70%. PATIENT HAS SOB WITH EXERTION. RESPIRATION REGULAR AND UNLABORED AT THIS TIME. DENIES PAIN. LEFT HAND G 20 PATENT AND SALINE LOCKED. ON TELE MONITORING WITH SINUS RHYTHM 90. INFORMED PATIENT TO CALL FOR HELP WHENEVER NEEDED. BED LOW AND LOCKED. SIDE RAILS UP X2. CALL LIGHT WITHIN REACH. WILL CONTINUE TO MONITOR.
[2020-04-28 20:00] VITALS: BP 115/77
--- NOTE | 2020-04-28 23:00 | NUR ---
HEAT AND FROST INSULATOR HELPER NOTE PATIENT PREFERRED TO DRINK BOTTLED WATER ONLY AT THIS TIME. BOTTLED WATER PROVIDED TO THE PATIENT. WILL CONTINUE TO MONITOR FOR ANY CHANGES.
[2020-04-29] VITALS: BP 92/55
[2020-04-29 04:00] VITALS: BP 120/79
--- NOTE | 2020-04-29 06:56 | NUR ---
STOCKROOM WORKER CLOSING NOTES NO CHANGE IN CONDITION THROUGHOUT THE AMMONIA WORKER. PT RESTED WELL. PT STILL ON HIGH FLOW AT 50LPM OF O2 FIO2 70%. TOLERATING WELL NO S/S OF RESP DISTRESS OR SOB. BREATHING IS EVEN AND UNLABORED. O2 SAT IS 97%. PT ON LAST REMODELER REPAIRER DISPLAYS, NSR WITH HEART RATE OF 79 AT THIS TIME. PT IS AMBULATORY. IV SITE, LEFT HAND PATENT FLUSHED ASEPTICALLY. NEEDS ATTENDED. PT DENIES PAIN AT THIS TIME. SAFETY MEASURES IN PLACE. HOB ELEVATED. SIDE RAILS UP X2 BED LOCKED IN LOWEST POSITION CALL LIGHT WITHIN REACH. WILL ENDORSE TO AM NURSE.
[2020-04-29 07:06] LABS: BASOPHILS % (AUTO) 0.1 % (0.0-2.0); EOSINOPHILS % (AUTO) 0.6 % (0.0-6.0); HEMATOCRIT 39 % (39-51); HEMOGLOBIN 12.9 g/dL (13.5-17.5); LYMPHOCYTES # (AUTO) 1.1 /CMM (0.8-4.8); LYMPHOCYTES % (AUTO) 8.6 % (20.0-44.0); MEAN CORPUSCULAR HGB CONC 33 g/dl (31.0-36.0); MEAN CORPUSCULAR VOLUME 93 fL (80-96); MONOCYTES % (AUTO) 8.3 % (2.0-12.0); NEUTROPHILS # (AUTO) 10.1 /CMM (1.8-8.9); NEUTROPHILS % (AUTO) 82.4 % (43.0-81.0); PLATELET COUNT (AUTO) 232 /CMM (150-450); RED BLOOD CELL COUNT(AUTO) 4.23 MIL/uL (4.5-6.0); WHITE BLOOD COUNT (AUTO) 12.3 K/uL (4.3-11.0)
--- NOTE | 2020-04-29 07:30 | NUR ---
RN OPENING NOTE PATIENT CURRENTLY IN BED, RESTING. CURRENTLY ON 50L HIGH FLOW OXYGEN, FIO2 AT 70%. O2 SATURATION WNL, TOLERATING OXYGEN WELL. NO S/S OF RESP DISTRESS OR SOB NOTED. PT ON SUPERVISOR PHOSPHORIC ACID DISPLAYS, NSR AT THIS TIME. PT IS AMBULATORY. IV SITE, LEFT HAND INTACT AND PATENT. NO S/S OF INFECTION AT THIS TIME. PT DENIES PAIN AT THIS TIME. SAFETY MEASURES IN PLACE. HOB ELEVATED. SIDE RAILS UP X2 BED LOCKED IN LOWEST POSITION CALL LIGHT WITHIN REACH. WILL CONT TO MONITOR AND PROVIDE TREATMENT.
[2020-04-29 07:39] LABS: CALCIUM, SERUM 8.4 mg/dL (8.5-10.1); CREATININE 0.9 mg/dL (0.6-1.3)
[2020-04-29 08:00] VITALS: BP 108/63
[2020-04-29] MEDS: MONTELUKAST SODIUM (10MG) 10 MG TABLET PO SCH (08:19)
[2020-04-29] MEDS: PANTOPRAZOLE 40 MG TABLET.DR PO SCH (08:20)
[2020-04-29] MEDS: DEXAMETHASONE SOD PHOSPHATE 10 MG/ML VIAL IV SCH (08:22)
[2020-04-29] MEDS: LOSARTAN POTASSIUM 50 MG TABLET PO SCH (08:23)
[2020-04-29] MEDS: APIXABAN 5 MG TABLET PO SCH ×2 (08:24→16:09)
[2020-04-29] MEDS: FLUTICASONE/VILANTEROL 1 EACH BLST.W.DEV IH SCH (08:34)
[2020-04-29] MEDS: ALBUTEROL SULFATE INH 18 GM HFA.AER.AD IH PRN ×2 (08:35→16:15)
[2020-04-29 12:00] VITALS: BP 99/57
[2020-04-29 16:00] VITALS: BP 101/59
--- NOTE | 2020-04-29 18:53 | NUR ---
RN OPENING NOTE PATIENT CURRENTLY IN BED, RESTING. PATIENT TITRATED O2 DOWN TO 45L HIGH FLOW OXYGEN, FIO2 AT 60% BY RT. O2 SATURATION WNL, TOLERATING TITRATION WELL. NO S/S OF RESP DISTRESS OR SOB NOTED. PT ON FILM MAKER DISPLAYS, NSR AT THIS TIME. PT IS AMBULATORY. IV SITE, LEFT HAND INTACT AND PATENT. NO S/S OF INFECTION AT THIS TIME. PT DENIES PAIN AT THIS TIME. SAFETY MEASURES IN PLACE. HOB ELEVATED. SIDE RAILS UP X2 BED LOCKED IN LOWEST POSITION CALL LIGHT WITHIN REACH. WILL ENDORSE TO ABSTRACTER NURSE FOR RACHEL.
--- NOTE | 2020-04-29 19:50 | NUR ---
RN NOTE PATIENT RESTING IN BED, A/OX4. PATIENT ON 45L HIGH FLOW OXYGEN, FIO2 AT 60%. O2 SAT 100%. NO S/S OF RESP DISTRESS OR SOB NOTED. PT ON CONTACT LENS POLISHER, NSR AT THIS TIME. PT IS AMBULATORY. IV SITE, LEFT HAND INTACT AND PATENT. NO S/S OF INFECTION OR INFILTRATION AT THIS TIME. DENIES ANY PAIN AT THIS TIME. SAFETY MEASURES IMPLEMENTED. BED LOCKED AND IN LOWEST POSITION. CALL LIGHT WITHIN REACH. WILL CONTINUE TO MONITOR.
[2020-04-29 20:00] VITALS: BP 108/70
[2020-04-30] VITALS: BP 97/61
[2020-04-30 04:00] VITALS: BP 124/80
--- NOTE | 2020-04-30 06:45 | NUR ---
RN NOTE PATIENT RESTING IN BED, A/OX4. PATIENT ON 50L HIGH FLOW OXYGEN, FIO2 AT 75%. O2 SAT 97%. NO S/S OF RESP DISTRESS OR SOB NOTED. PT ON YOKER MACHINE OPERATOR, NSR. IV SITE, LEFT HAND INTACT AND PATENT. NO S/S OF INFECTION OR INFILTRATION AT THIS TIME. DENIES ANY PAIN AT THIS TIME. SAFETY MEASURES IMPLEMENTED. BED LOCKED AND IN LOWEST POSITION. CALL LIGHT WITHIN REACH. WILL ENDORSE TO ONCOMING SHIFT.
[2020-04-30 07:21] LABS: BASOPHILS % (AUTO) 0.1 % (0.0-2.0); EOSINOPHILS % (AUTO) 0.4 % (0.0-6.0); HEMATOCRIT 40 % (39-51); HEMOGLOBIN 13.1 g/dL (13.5-17.5); LYMPHOCYTES # (AUTO) 1.2 /CMM (0.8-4.8); LYMPHOCYTES % (AUTO) 10.6 % (20.0-44.0); MEAN CORPUSCULAR HGB CONC 33 g/dl (31.0-36.0); MEAN CORPUSCULAR VOLUME 93 fL (80-96); MONOCYTES # (AUTO) 1.1 /CMM (0.1-1.30); MONOCYTES % (AUTO) 9.8 % (2.0-12.0); NEUTROPHILS # (AUTO) 9.2 /CMM (1.8-8.9); NEUTROPHILS % (AUTO) 79.1 % (43.0-81.0); PLATELET COUNT (AUTO) 224 /CMM (150-450); RED BLOOD CELL COUNT(AUTO) 4.25 MIL/uL (4.5-6.0); WHITE BLOOD COUNT (AUTO) 11.6 K/uL (4.3-11.0)
--- NOTE | 2020-04-30 07:45 | NUR ---
DATA PROCESSING EQUIPMENT REPAIRER OPENING NOTES Patient received in bed. Patient is alert and oreinted. On High flow 02 at 45 liters with Fi02 at 60%. No c/o sob noted. Patient is noted with left hand IV site intact and patent. No s/s of infection noted.Patient's head of bed kept elevated. Bed is in lowest and locked position. Will continue to monitor. Call light with in reach.
[2020-04-30 07:57] LABS: CALCIUM, SERUM 8.4 mg/dL (8.5-10.1); CREATININE 0.9 mg/dL (0.6-1.3); MAGNESIUM 2.5 mg/dL (1.8-2.4); PHOSPHORUS 3.4 mg/dL (2.5-4.9); POTASSIUM 4.2 mmol/L (3.5-5.1)
[2020-04-30 08:00] VITALS: BP 107/78
[2020-04-30] MEDS: LOSARTAN POTASSIUM 50 MG TABLET PO SCH ×2 (09:00→09:11)
[2020-04-30] MEDS: DEXAMETHASONE SOD PHOSPHATE 10 MG/ML VIAL IV SCH (09:12)
[2020-04-30] MEDS: MONTELUKAST SODIUM (10MG) 10 MG TABLET PO SCH (09:12)
[2020-04-30] MEDS: PANTOPRAZOLE 40 MG TABLET.DR PO SCH (09:12)
[2020-04-30] MEDS: APIXABAN 5 MG TABLET PO SCH ×2 (09:17→18:08)
--- NOTE | 2020-04-30 09:30 | NUR ---
HOOK UP DRIVER-1 NOTES Patient refused his 9 am BP medication. Patient educated x 3 but still refused for BP of 107/78.Will monitor.
[2020-04-30] MEDS: FLUTICASONE/VILANTEROL 1 EACH BLST.W.DEV IH SCH (09:50)
--- NOTE | 2020-04-30 12:00 | NUR ---
RN TELE1 PATIENT TRIED REMOVING DRESSING FOR IV SO IT COULD BE CHANGED BUT REMOVED THE IV IN THE PROCESS, REFUSED PLACEMENT OF ANOTHER IV DESPITE EDUCATING ON THE NEED. WILL ASK TO PLACE ANOTHER ONE IN AN HOUR.
[2020-04-30 12:29] VITALS: BP 102/61
[2020-04-30 16:00] VITALS: BP 98/66
--- NOTE | 2020-04-30 18:58 | NUR ---
ENDOSCOPY RN/1 CLOSING NOTES Patient is alert and oriented.Patient is currently sitting in the bedside chair. Patient did not c/o sob, no respiratory distress noted. Patient is on high flow 02 at 35 Liters with Fi02 of 52%. No c/o pain or discomfort. Bed is kept in lowest and locked position. Call light with in reach. Will endorse to next shift for RACHEL.
--- NOTE | 2020-04-30 19:20 | NUR ---
RECEIVED PT ON ROOM SITTING ON CHAIR AWAKE A/O X4 VERBALIZED NEEDS ON TELE MONITOR READING SINUS RHYTHM 90'S ON HIGHFLOW 35L 52% SPO2 93-95% NO SOB NOTED, PT VERBALIZED HE IS GETTING BETTER,CALL LIGHT WITHIN REACH WILL CONT TO MONITOR
[2020-04-30 20:00] VITALS: BP 105/56
[2020-05-01] VITALS: BP 113/76
[2020-05-01 04:00] VITALS: BP 105/71
[2020-05-01] MEDS: ALBUTEROL SULFATE INH 18 GM HFA.AER.AD IH PRN ×2 (04:00)
--- NOTE | 2020-05-01 07:11 | NUR ---
PT SITTING ON CHAIR AWAKE A/O X3 VERBALIZED NEEDS, STILL ON HIGH FLOW 35L 52% SPO2 93-95% NO SIGNIFICANT CHANGES ON CONDITION NOTED NO PAIN COMPLAINT, ALL NEEDS ATTENDED SAFETY MEASURE ON PLACE CALL LIGHT WITHIN REACH WILL ENDORSED TO AM SHIFT NURSE
--- NOTE | 2020-05-01 07:30 | NUR ---
TELE/1 RN OPENING NOTES Patient received sitting in chair. Patient is alert and oriented x4 and shows no s/sx of respiraotry distress. Patient is on high flow 02 at 35 liters and Fi 02 of 52% with 02 saturation reading of 94%. Noted with RFA IV 20 gauze which is patent and no s/s of infiltration. Tele monitor reading of SR. Patient educated regarding use of call light. Will continue to monitor. Bed is in lowest and locked position. Addendum: 05/01/20 at 1854 by JAZ SHERWOOD RN Patient noted with left forearm iv gauze 20.
[2020-05-01 08:00] VITALS: BP 102/59
[2020-05-01] MEDS: PANTOPRAZOLE 40 MG TABLET.DR PO SCH (08:24)
[2020-05-01] MEDS: FLUTICASONE/VILANTEROL 1 EACH BLST.W.DEV IH SCH (08:25)
[2020-05-01] MEDS: DEXAMETHASONE SOD PHOSPHATE 10 MG/ML VIAL IV SCH (08:25)
[2020-05-01] MEDS: LOSARTAN POTASSIUM 50 MG TABLET PO SCH (08:25)
[2020-05-01] MEDS: MONTELUKAST SODIUM (10MG) 10 MG TABLET PO SCH (08:26)
[2020-05-01] MEDS: APIXABAN 5 MG TABLET PO SCH ×2 (08:28→17:13)
[2020-05-01 13:24] VITALS: BP 100/58
[2020-05-01 16:00] VITALS: BP 101/63
--- NOTE | 2020-05-01 18:48 | NUR ---
TELE-1 RN CLOSING NOTES Patient currently sitting in chair. Patient is alert and oriented x4 and shows no s/sx of respiratory distress. Patient is on high flow 02 at 30 liters and Fi 02 of 49% with 02 saturation reading of 96%. Noted with Left forearm IV 20 gauze which is patent and no s/s of infiltration. Tele monitor reading of SR.Patient noted with 500 cc of fluid intake and urine output of 700 cc during shift. Patient educated regarding use of call light. Will continue to monitor. Bed is in lowest and locked position
--- NOTE | 2020-05-01 19:45 | NUR ---
RN OPENING NOTES RECEIVED PT SITTING ON BEDSIDE CHAIR. ALERT AND ORIENTED X 4. ON HFNC 30L AT 50% WITH O2 SAT OF 96 %. COUGH NOTED. DENIES ANY SOB. NO DISTRESS NOTED. ON TELE [id number] SHOWS SR HR 98. DENIES ANY PAIN. WITH SL ON LFA G20, PATENT AND INTACT. FLUSHED, NO SIGNS OF INFILTRATION NOTED. ALL SAFETY MEASURES IMPLEMENTED PER PROTOCOL. CALL LIGHT WITHIN REACH. BED LOCKED IN LOWEST POSITION.
[2020-05-01 20:00] VITALS: BP 104/68
[2020-05-02] VITALS: BP 130/84
[2020-05-02 04:00] VITALS: BP 112/72
[2020-05-02] MEDS: PANTOPRAZOLE 40 MG TABLET.DR PO SCH (06:53)
--- NOTE | 2020-05-02 06:56 | NUR ---
RN CLOSING NOTES PT IN BED AWAKE, ABLE TO MAKE NEEDS KNOWN. CONTINUE ON HFNC, TOLERATING WELL. NO DISTRESS NOTED. DENIES SOB DENIES PAIN. O2 SAT AT 97 %. ON TELE MONITORING SR HR 77. ALL NEEDS ATTENDED. IV ON LFA PATENT AND INTACT. STRICT ISOLATION PRECAUTION MAINTAINED. CALL LIGHT WITHIN REACH. BED LOCKED IN LOWEST POSITION. SIDE RAILS UP.
--- NOTE | 2020-05-02 07:35 | NUR ---
TELE/RN OPENING RECEIVED PATIENT ON BED. AWAKE ALERT AND ORIENTED X 4. PATIENT IS ON HIGH FLOW 30L 50% OXYGEN. PATIENT IN NO APPARENT RESPIRATORY DISTRESS NOTED. NO COMPLAINED OF PAIN NOTED AT THIS TIME. TELE MONITOR READING SINUS TACHY 103. WILL CONTINUE TO MONITOR.
[2020-05-02 08:00] VITALS: BP 118/69
[2020-05-02] MEDS: MONTELUKAST SODIUM (10MG) 10 MG TABLET PO SCH (08:38)
[2020-05-02] MEDS: LOSARTAN POTASSIUM 50 MG TABLET PO SCH (08:38)
[2020-05-02] MEDS: ACETAMINOPHEN 325 MG TABLET PO PRN (08:39)
[2020-05-02] MEDS: DEXAMETHASONE SOD PHOSPHATE 10 MG/ML VIAL IV SCH (08:40)
[2020-05-02] MEDS: APIXABAN 5 MG TABLET PO SCH ×2 (08:40→17:53)
[2020-05-02] MEDS: FLUTICASONE/VILANTEROL 1 EACH BLST.W.DEV IH SCH (08:46)
[2020-05-02 12:00] VITALS: BP 107/66
[2020-05-02 16:00] VITALS: BP 100/64
--- NOTE | 2020-05-02 18:50 | NUR ---
TELE/RN CLOSING NOTES PATIENT ON BED.ALERT AND ORIENTED X 4. PATIENT IS ON HIGH FLOW 25L 50% OXYGEN. PATIENT IN NO APPARENT RESPIRATORY DISTRESS NOTED. NO COMPLAINED OF PAIN NOTED AT THIS TIME. TELE MONITOR READING SINUS RHYTHM/SINUS TACHY 110BPM SATURATION 94%. IV ACCESS AT LEFT FOREARM #20G PATENT AND INTACT. SEEN AND EXAMINED BY MD WITH ORDERS MADE AND CARRIED OUT. ALL DUE MEDICATION WAS GIVEN. SAFETY PRECAUTIONS WAS IN PLACED. BED IN LOWEST POSITION AND LOCKED. SIDE RAILS UP X2. CALL LIGHT WITHIN REACH. WILL ENDORSED TO JUDICIAL ADMINISTRATIVE ASSISTANT FOR RACHEL.
[2020-05-02 20:00] VITALS: BP 111/61
[2020-05-03] VITALS (7 sets, daily range): BP systolic 93–133; BP diastolic 54–93
--- NOTE | 2020-05-03 07:50 | NUR ---
RN OPENING RECEIVED PATIENT IN CHAIR. AWAKE ALERT AND ORIENTED X 4. PATIENT IS ON HIGH FLOW 30L 50% OXYGEN. PATIENT IN NO APPARENT RESPIRATORY DISTRESS AT THIS MOMENT AND NOT COMPLAINED OF PAIN .TELE MONITOR READING SINUS TACHY 103. WILL CONTINUE TO MONITOR.
[2020-05-03] MEDS: DEXAMETHASONE SOD PHOSPHATE 10 MG/ML VIAL IV SCH (08:10)
[2020-05-03] MEDS: MONTELUKAST SODIUM (10MG) 10 MG TABLET PO SCH (08:10)
[2020-05-03] MEDS: LOSARTAN POTASSIUM 50 MG TABLET PO SCH (08:10)
[2020-05-03] MEDS: APIXABAN 5 MG TABLET PO SCH ×2 (08:11→17:11)
[2020-05-03] MEDS: PANTOPRAZOLE 40 MG TABLET.DR PO SCH (08:12)
[2020-05-03] MEDS: FLUTICASONE/VILANTEROL 1 EACH BLST.W.DEV IH SCH (08:13)
--- NOTE | 2020-05-03 15:06 | NUR ---
RN NOTES PT HAS NO S/S OF RESPIRATORY DISTRESS NOTED
--- NOTE | 2020-05-03 18:50 | NUR ---
RN CLOSING NOTES PATIENT CURRENTLY IN CHAIR, A/O X4 TO VERBAL AND PAINFUL STIMULI ONLY. TELE/MONITOR IS READING SR AND ST. PATIENT CURRENTLY ON HIGH FLOW 25L AND 50% FIO2 OXYGEN THERAPY VIA NASAL CANNULA. NO S/S OF RESPIRATORY DISTRESS NOTED. CURRENTLY HAS IV ON L F ARM #20 SALINE LOCK. IV INTACT AND PATENT, NO S/S OF INFECTION OR INFILTRATION AT THIS TIME. ALL SAFETY MEASURES IN PLACE PER HOSPITAL POLICY. BED LOCKED AND IN THE LOWEST POSITION.SIDE RAILS ARE UP X2. CALL LIGHT WITHIN REACH. WILL ENDORSE TO INDUSTRIAL MANUFACTURING TECHNICIAN NURSE FOR RACHEL.
--- NOTE | 2020-05-03 19:20 | NUR ---
SYRUP MIXER OPENING NOTES: RECEIVED PT SITTING IN THE CHAIR,AWAKE, A/O X4. NO S/S OF DISTRESS NOTED. WITH HIGH FLOW O2 AT 25L, AT 50%. CALL LIGHT WIHTIN REACH. BED IN LOWEST AND LOCKED POSITION. AMBULATORY.
[2020-05-04] VITALS: BP 111/65
--- NOTE | 2020-05-04 06:23 | NUR ---
EMAIL MARKETING COORDINATOR CLOSING NOTES: PT IN BED, AWAKE, A/O X4. NO S/S OF DISTRESS NOTED. CALL LIGHT WITHIN REACH. BED IN LOWEST AND LOCKED POSITION. PT STATED THAT HE SLEPT GOOD LAST NIGHT. PER GIANA SPRAGUE PT REFUSED TO HAVE V/S TAKEN LAST NIGHT BECAUSE HE WANTS TO SLEEP.
[2020-05-04 06:54] LABS: BASOPHILS % (AUTO) 0.2 % (0.0-2.0); EOSINOPHILS % (AUTO) 0.1 % (0.0-6.0); HEMATOCRIT 40 % (39-51); HEMOGLOBIN 13.1 g/dL (13.5-17.5); LYMPHOCYTES # (AUTO) 1.3 /CMM (0.8-4.8); LYMPHOCYTES % (AUTO) 7.2 % (20.0-44.0); MEAN CORPUSCULAR HGB CONC 33 g/dl (31.0-36.0); MEAN CORPUSCULAR VOLUME 94 fL (80-96); MONOCYTES # (AUTO) 1.4 /CMM (0.1-1.30); MONOCYTES % (AUTO) 7.9 % (2.0-12.0); NEUTROPHILS # (AUTO) 15.3 /CMM (1.8-8.9); NEUTROPHILS % (AUTO) 84.6 % (43.0-81.0); PLATELET COUNT (AUTO) 288 /CMM (150-450); RED BLOOD CELL COUNT(AUTO) 4.29 MIL/uL (4.5-6.0); WHITE BLOOD COUNT (AUTO) 18.1 K/uL (4.3-11.0)
--- NOTE | 2020-05-04 07:20 | NUR ---
RN OPENING NOTES RECEIVED PATIENT IN CHAIR. AWAKE A/O X4. ON HIGH FLOW 25L 50% OXYGEN. NO SIGNS OF ACUTE RESPIRATORY DISTRESS AT THIS MOMENT. NO COMPLAINS OF PAIN. TELE MONITOR READING SR - ST @100S. SAFETY MEASURES IMPLEMENTED. CALL LIGHT WITHIN REACH. BED LOCKED AND IN LOWEST POSITION WITH SIDE RAILS UP X2. HOB ELEVATED. WILL CONTINUE TO MONITOR.
[2020-05-04 07:23] LABS: CALCIUM, SERUM 8.6 mg/dL (8.5-10.1); POTASSIUM 4.2 mmol/L (3.5-5.1)
[2020-05-04 08:00] VITALS: BP 125/67
[2020-05-04] MEDS: PANTOPRAZOLE 40 MG TABLET.DR PO SCH (08:53)
[2020-05-04] MEDS: DEXAMETHASONE SOD PHOSPHATE 10 MG/ML VIAL IV SCH (08:54)
[2020-05-04] MEDS: MONTELUKAST SODIUM (10MG) 10 MG TABLET PO SCH (08:54)
[2020-05-04] MEDS: APIXABAN 5 MG TABLET PO SCH ×2 (08:56→17:16)
[2020-05-04] MEDS: LOSARTAN POTASSIUM 50 MG TABLET PO SCH (09:00)
[2020-05-04] MEDS: FLUTICASONE/VILANTEROL 1 EACH BLST.W.DEV IH SCH (09:04)
[2020-05-04 12:00] VITALS: BP 109/76
[2020-05-04 16:00] VITALS: BP 111/62
--- NOTE | 2020-05-04 18:54 | NUR ---
RN CLOSING NOTES PATIENT RESTING IN BED. A/O X4. ON NC 6L SATURATING @93%. NO SIGNS OF ACUTE RESPIRATORY DISTRESS AT THIS MOMENT. NO COMPLAINS OF PAIN. TELE MONITOR READING SR - ST @100S. SAFETY MEASURES IMPLEMENTED. CALL LIGHT WITHIN REACH. BED LOCKED AND IN LOWEST POSITION WITH SIDE RAILS UP X2. HOB ELEVATED. WILL ENDORSE TO NIGHT NURSE FOR RACHEL.
--- NOTE | 2020-05-04 19:50 | NUR ---
RN OPENING NOTES RECEIVED PT IN BED, AWAKE RESTING. A/O X 4 NASAL CANNULA AT 6L OF O2 WITH HUMIDIFICATION. TOLERATING WELL SATURATING IS 91-92% AT THIS TIME. NO SOB OR RESP DISTRESS NOTED AT THIS TIME. PT IS ON CARDIAC MONITORING NSR HEART RATE 84 AT THIS TIME. PT IS AMBULATORY, IV SITE FLUSHED, SL. PT DENIES PAIN AT THIS TIME. SAFETY MEASURES IN PLACE. HOB ELEVATED TOLERATED. BED IS LOCKED IN LOWEST POSITION. SIDE RAILS UP X2. CALL LIGHT WITHIN REACH. WILL CONT TO MONITOR.
[2020-05-04 20:00] VITALS: BP 136/86
--- NOTE | 2020-05-04 22:51 | NUR ---
UPON ROUNDS, PT ENJOYS MOVING TO CHAIR. NEEDS ATTENDED. WILL CONT TO MONITOR
[2020-05-05] VITALS: BP 102/64
[2020-05-05 04:00] VITALS: BP 136/87
[2020-05-05 07:08] LABS: BASOPHILS % (AUTO) 0.1 % (0.0-2.0); HEMATOCRIT 42 % (39-51); HEMOGLOBIN 13.7 g/dL (13.5-17.5); LYMPHOCYTES # (AUTO) 1.6 /CMM (0.8-4.8); LYMPHOCYTES % (AUTO) 7.4 % (20.0-44.0); MEAN CORPUSCULAR HGB CONC 33 g/dl (31.0-36.0); MEAN CORPUSCULAR VOLUME 93 fL (80-96); MONOCYTES # (AUTO) 1.5 /CMM (0.1-1.30); MONOCYTES % (AUTO) 7.4 % (2.0-12.0); NEUTROPHILS # (AUTO) 17.9 /CMM (1.8-8.9); NEUTROPHILS % (AUTO) 85.1 % (43.0-81.0); PLATELET COUNT (AUTO) 298 /CMM (150-450); RED BLOOD CELL COUNT(AUTO) 4.45 MIL/uL (4.5-6.0)
[2020-05-05 07:57] LABS: CALCIUM, SERUM 8.8 mg/dL (8.5-10.1); MAGNESIUM 2.3 mg/dL (1.8-2.4); PHOSPHORUS 3.4 mg/dL (2.5-4.9); POTASSIUM 4.2 mmol/L (3.5-5.1)
[2020-05-05 08:00] VITALS: BP 109/70
--- NOTE | 2020-05-05 08:00 | NUR ---
RN OPENING NOTE RECEIVED PATIENT IN BED WITH HOB AT SEMI FOWLERS POSITION. PATIENT IS AOX4. PATIENT IS RECEIVING 6L VIA NC. SKIN IS INTACT. LFA #20 IS INTACT, PATENT, AND HAS NO SIGNS OF INFILTRATION. MONITOR NOTES NORMAL SINUS RHYTHM AND O2 SAT OF 98%. BED IS LOCKED IN LOWEST POSITION, 3 SIDE RAILS RAISED, CALL KUHN WITHIN REACH. WILL CONTINUE TO MONITOR THROUGHOUT SHIFT.
[2020-05-05] MEDS: MONTELUKAST SODIUM (10MG) 10 MG TABLET PO SCH (08:23)
[2020-05-05] MEDS: FLUTICASONE/VILANTEROL 1 EACH BLST.W.DEV IH SCH (08:23)
[2020-05-05] MEDS: APIXABAN 5 MG TABLET PO SCH ×2 (08:24→16:28)
[2020-05-05] MEDS: LOSARTAN POTASSIUM 50 MG TABLET PO SCH (08:24)
[2020-05-05] MEDS: PANTOPRAZOLE 40 MG TABLET.DR PO SCH (08:24)
[2020-05-05] MEDS: DEXAMETHASONE SOD PHOSPHATE 10 MG/ML VIAL IV SCH (08:25)
[2020-05-05 11:55] LABS: BAND % (MANUAL) 2 % (0.0-5.0); LYMPHOCYTES % (MANUAL) 4 % (16-48); MONOCYTES % (MANUAL) 8 % (0-11.0); MYELOCYTES % 2 % (0-0); NEUTROPHILS % (MANUAL) 84 (42-76)
[2020-05-05 12:00] VITALS: BP 106/63
[2020-05-05 16:00] VITALS: BP 106/58
--- NOTE | 2020-05-05 18:52 | NUR ---
RN CLOSING NOTE PATIENT IS IN BED WITH HOB AT SEMI FOWLERS POSITION. AOX4. PATIENT IS ON 6L NC. SKIN IS INTACT. LFA #20 SL IS PATENT, INTACT, AND HAS NO SIGNS OF INFILTRATION. BED IS LOCKED IN THE LOWEST POSITION, CALL KUHN WITHIN REACH, THREE GUARD RAILS RAISED, AND ALL HOSPITAL SAFETY PRECAUTIONS ARE BEING FOLLOWED. WILL ENDORSE TO MAP MOUNTER NURSE.
--- NOTE | 2020-05-05 19:45 | NUR ---
RN OPENING NOTES RECEIVED PT IN BED, AWAKE RESTING. A/O X 4 NASAL CANNULA AT 6L OF O2 WITH HUMIDIFICATION. TOLERATING WELL SATURATING IS 95% AT THIS TIME. NO SOB OR RESP DISTRESS NOTED AT THIS TIME. PT IS ON CARDIAC MONITORING NSR HEART RATE 99 AT THIS TIME. PT IS AMBULATORY, IV SITE FLUSHED, SL. PT DENIES PAIN AT THIS TIME. SAFETY MEASURES IN PLACE. HOB ELEVATED TOLERATED. BED IS LOCKED IN LOWEST POSITION. SIDE RAILS UP X2. CALL LIGHT WITHIN REACH. WILL CONT TO MONITOR.
[2020-05-05 20:00] VITALS: BP 112/69
[2020-05-06] VITALS: BP 115/79
[2020-05-06 04:00] VITALS: BP 127/81
--- NOTE | 2020-05-06 07:07 | NUR ---
RN CLOSING NOTES NO SIGNIFICANT CHANGES. PT STILL ON A/O X 4 NASAL CANNULA AT 6L OF O2 WITH HUMIDIFICATION. TOLERATING WELL SATURATING IS 91-92% AT THIS TIME. NO SOB OR RESP DISTRESS NOTED AT THIS TIME. PT STILL NSR ON CARDIAC MONITORING. PT IS AMBULATORY, IV SITE FLUSHED, SL. PT DENIES PAIN AT THIS TIME. AFEBRILE. SAFETY MEASURES IN PLACE. HOB ELEVATED TOLERATED. BED IS LOCKED IN LOWEST POSITION. SIDE RAILS UP X2. CALL LIGHT WITHIN REACH. WILL CONT TO MONITOR.
[2020-05-06 07:12] LABS: CALCIUM, SERUM 8.3 mg/dL (8.5-10.1); CREATININE 0.9 mg/dL (0.6-1.3); POTASSIUM 4.1 mmol/L (3.5-5.1)
--- NOTE | 2020-05-06 07:30 | NUR ---
RN TELE1 PATIENT IN BED, NO S/S OF DISTRESS, ON 6L NASAL CANULA O2 SAT >95%, L FOREARM IV 20 G, INTACT CLEAN DRY FLUSHES WELL, SELF AMBULATES, A/O X4, INDEPENDENT IN SELF CARE, BED IN LOWEST LOCKED POSITION, CALL LIGHT WITHIN REACH, WILL CONTINUE TO MONITOR.
[2020-05-06 08:00] VITALS: BP 120/84
[2020-05-06] MEDS: LOSARTAN POTASSIUM 50 MG TABLET PO SCH ×2 (08:56→09:04)
[2020-05-06] MEDS: MONTELUKAST SODIUM (10MG) 10 MG TABLET PO SCH (08:56)
[2020-05-06] MEDS: PANTOPRAZOLE 40 MG TABLET.DR PO SCH (08:57)
[2020-05-06] MEDS: APIXABAN 5 MG TABLET PO SCH ×2 (08:58→17:01)
[2020-05-06] MEDS: FLUTICASONE/VILANTEROL 1 EACH BLST.W.DEV IH SCH (09:00)
--- NOTE | 2020-05-06 10:00 | NUR ---
RN TELE1 PATIENT UP IN CHAIR TOLERATING WELL. O2 SAT >95%
[2020-05-06 12:00] VITALS: BP 104/90
--- NOTE | 2020-05-06 13:30 | NUR ---
RN TELE1 PATIENT UP AND WALKING IN ROOM TO HELP EXPAND LUNGS, EDUCATED ON COVID PNEUMONIA SYMPTOMS, UNDERSTOOD.
[2020-05-06 16:00] VITALS: BP 100/55
--- NOTE | 2020-05-06 17:00 | NUR ---
RN TELE1 DISCUSSED PATIENT'S PROGRESS WITH O2 TITRATION, EDUCATED ON FRICKERTRON CHECKER COVID EFFECTS, UNDERSTOOD
--- NOTE | 2020-05-06 19:05 | NUR ---
RN OPENING NOTES RECEIVED PT IN BED, AWAKE RESTING. A/O X 4 , IN NASAL CANNULA AT 6L OF O2 WITH HUMIDIFICATION. TOLERATING WELL SATURATING IS 95% AT THIS TIME. NO SOB OR RESP DISTRESS NOTED AT THIS TIME. PT IS ON CARDIAC MONITORING NSR HEART RATE 99 . PT IS AMBULATORY, IV SITE FLUSHED, SL. PT DENIES PAIN AT THIS TIME.DROPLET ISOLATION FOR COVID 19 MAINTAIN SAFETY MEASURES IN PLACE. HOB ELEVATED TOLERATED. BED IS LOCKED IN LOWEST POSITION. SIDE RAILS UP X2. CALL LIGHT WITHIN REACH. WILL CONT TO MONITOR.
--- NOTE | 2020-05-06 19:06 | NUR ---
RN TELE1 PATIENT IN BED, NO S/S OF DISTRESS, ON 5L NASAL CANULA O2 SAT 95%, L FOREARM IV 20 G, INTACT CLEAN DRY FLUSHES WELL, SELF AMBULATES, A/O X4, INDEPENDENT IN SELF CARE, BED IN LOWEST LOCKED POSITION, CALL LIGHT WITHIN REACH, SAFETY MEASURES IN PLACE.
[2020-05-06 20:00] VITALS: BP 102/71
[2020-05-07] VITALS: BP 104/60
[2020-05-07 04:00] VITALS: BP 124/78
--- NOTE | 2020-05-07 07:13 | NUR ---
RN CLOSING NOTES NO SIGNIFICANT CHANGES. PT STILL ON A/O X 4 NASAL CANNULA AT 6L OF O2 WITH HUMIDIFICATION. TOLERATING WELL SATURATING IS 91-92% AT THIS TIME. NO SOB OR RESP DISTRESS NOTED . PT STILL NSR ON CARDIAC MONITORING. PT IS AMBULATORY, PT DENIES PAIN AT THIS TIME. AFEBRILE.ALL NEEDS ATTENDED SAFETY MEASURES IN PLACE. BED IS LOCKED IN LOWEST POSITION. SIDE RAILS UP X2. CALL LIGHT WITHIN REACH. WILL CONT TO MONITOR.
--- NOTE | 2020-05-07 07:30 | NUR ---
PT RECEIVED RESTING COMFORTABLY IN BED. NO S/S OR C/O PAIN OR DISCOMFORT NOTED. SIDE RAILS UP X2, CALL LIGHT LEFT WITHIN REACH. WILL CONTINUE PLAN OF CARE.
[2020-05-07 08:00] VITALS: BP 120/81
--- NOTE | 2020-05-07 08:30 | NUR ---
AT [facility] DR IBRAHIM. NOTIFIED OF LOWERING 02 TO 4L. Addendum: 05/07/20 at 1244 by WENDY TRAN RN WILL CONTINUE TO MONITOR
[2020-05-07] MEDS: MONTELUKAST SODIUM (10MG) 10 MG TABLET PO SCH (08:58)
[2020-05-07] MEDS: PANTOPRAZOLE 40 MG TABLET.DR PO SCH (08:58)
[2020-05-07] MEDS: LOSARTAN POTASSIUM 50 MG TABLET PO SCH (09:00)
[2020-05-07] MEDS: APIXABAN 5 MG TABLET PO SCH ×2 (09:03→17:28)
[2020-05-07] MEDS: FLUTICASONE/VILANTEROL 1 EACH BLST.W.DEV IH SCH (09:04)
[2020-05-07 12:00] VITALS: BP 106/63
[2020-05-07 16:00] VITALS: BP 99/69
--- NOTE | 2020-05-07 18:00 | NUR ---
CHANGE OF SHIFT REPORT PT RESTING COMFORTABLY IN BED. NO S/S OR C/O PAIN OR DISTRESS NOTED. SIDE RAILS UP X2, CALL LIGHT LEFT WITHIN REACH. PT KEPT CLEAN, DRY, AND COMFORTABLE. NO SIGNIFICANT CHANGES SINCE PREVIOUS SHIFT. WILL GIVE REPORT TO JUANCHO ADAMS.
[2020-05-07 20:00] VITALS: BP 86/55
--- NOTE | 2020-05-07 20:07 | NUR ---
DESIGNER WRITER OPENING NOTE Patient awake A/O x4, sitting in chair. Tele monitor reading sinus rhythm. Breathing even, unlabored on 4 LPM NC. No acute distress or SOB noted. Skin is warm, pink, dry, intact. Patient refused IV access at this time. Patient is ambulatory. BS active. Patient voiding without difficulty. Bed in low position, wheels locked, side rails up x2, call light within reach.
[2020-05-08] VITALS (8 sets, daily range): BP systolic 98–115; BP diastolic 65–78
--- NOTE | 2020-05-08 06:18 | NUR ---
COMMERCIAL FOOD INSTRUCTOR CLOSING NOTE Patient asleep in bed A/O x4. Tele monitor reading sinus rhythm. Breathing even, unlabored on 4 LPM NC. No acute distress or SOB noted. Patient refused IV access at this time. Patient is ambulatory. BS active. Patient voiding without difficulty with BRP. All needs met. Bed in low position, wheels locked, side rails up x2, call light within reach. Will endorse to oncoming nurse.
[2020-05-08] MEDS: PANTOPRAZOLE 40 MG TABLET.DR PO SCH (06:41)
--- NOTE | 2020-05-08 07:01 | NUR ---
RN CLOSING NOTES PATIENT IN BED ON ROOM AIR, SPO2 IS 94-96%, VERBALIZING HE STILL NEED SUPPLEMENTAL O2 THERAPY, BECAUSE HE IS GOING SOB SOMETIMES. PATIENT PLANNED TO DISCHARGE TODAY, WAITING FOR THE SON TO PICK HIM UP PATIENT NEEDS TO GO HOME WITH OXYGEN, WAITING FOR DELIVERY. WILL ENDORSE TO PM SHIFT RN FOR RACHEL
--- NOTE | 2020-05-08 07:30 | NUR ---
RN OPENING NOTE PATIENT AWAKE IN BED COMFORTABLY, A&OX4, ABLE TO MAKE NEEDS KNOWN, BREATHING EVENLY AND UNLABORED ON OXYGEN THERAPY VIA NC AT 2 L/MIN, TOLERATING WELL, SATTING AT 96%. NO ACUTE DISTRESS NOTED AT THIS TIME. DENIES PAIN. TELE READING NS 80'S. ISOLATION PRECAUTIONS MAINTAINED. ALL NEEDS RENDERED. SAFETY PRECAUTIONS IMPLEMENTED. BED LOCKED IN LOWEST POSITION. SIDE RAILS UP X2. CALL LIGHT WITHIN REACH. WILL CONTINUE TO MONITOR AND PROVIDE CARE THROUGHOUT SHIFT.
[2020-05-08] MEDS: FLUTICASONE/VILANTEROL 1 EACH BLST.W.DEV IH SCH (09:00)
[2020-05-08] MEDS: LOSARTAN POTASSIUM 50 MG TABLET PO SCH (09:00)
[2020-05-08] MEDS: APIXABAN 5 MG TABLET PO SCH ×2 (09:00→17:00)
--- NOTE | 2020-05-08 09:30 | NUR ---
Patient refused eliquis (apixaban). Losartan potassium not administered due to low BP 107/74. Fluticasone not administered because patient is requesting advir. notified, currently awaiting medication order and supply from pharmacy.
[2020-05-08] MEDS: MONTELUKAST SODIUM (10MG) 10 MG TABLET PO SCH (09:45)
[2020-05-08] MEDS ORDERED: METH4TAB3 PO ×2 (11:06→11:21)
[2020-05-08] MEDS ORDERED: FLUT1DIS3 IH (11:21)
[2020-05-08] MEDS ORDERED: FLUTICASONE/SALMETEROL DISKUS IH SCH (12:30)
--- NOTE | 2020-05-08 20:20 | NUR ---
HAND PLUG SHAPER: CONTINUITY OF CARE Patient sitting up in the chair. A/O x4 feels upset not going home today. CM following. Awaiting oxygen delivery to home. Patient will stay another night hospitalization, informed Dr. Amos. Contact/Droplet isolation maintained.
[2020-05-09 00:18] VITALS: BP 117/77
[2020-05-09 00:23] VITALS: BP 117/77
[2020-05-09 04:19] VITALS: BP 113/80
--- NOTE | 2020-05-09 06:11 | NUR ---
DISTRESSER: END OF SHIFT REPORT Sinus Rhythm in the Tele monitor. On Oxygen support 4LPM NC, mild SOB with exertion improved with rest. Denies chest pain. Plan for DC home with Oxygen. CM following. Patient to be picked up today at 1000am by ambulance. Oxygen Concentrator and portable tank available at bedside to be send home with the patient upon dc. Will endorse to Oncoming RN. Contact/Droplet isolation maintained.
--- NOTE | 2020-05-09 07:02 | NUR ---
OSTEOPATHIC RESIDENT OPENING NOTE RECEIVED PT IN BED AWAKE AT THIS TIME. AOX4 NO SOB NOTED, NO S/S OF ANY ACUTE DISTRESS NOTED, NO C/O PAIN NOTED. PT STABLE ON RA. EXTERNAL TELE MONITOR READS ST 113. NO IV ACCESS NOTED. SAFETY PRECAUTIONS IN PLACE AND MAINTAINED AT ALL TIMES. BED IN LOWEST LOCKED POSITION, SIDE RAILS UP, HOB ELEVATED, TABLE AND CALL LIGHT WITHIN REACH. WILL CONTINUE TO MONITOR..
[2020-05-09] MEDS: PANTOPRAZOLE 40 MG TABLET.DR PO SCH (08:27)
[2020-05-09] MEDS: MONTELUKAST SODIUM (10MG) 10 MG TABLET PO SCH (08:27)
[2020-05-09] MEDS: APIXABAN 5 MG TABLET PO SCH (08:27)
[2020-05-09] MEDS: FLUTICASONE/VILANTEROL 1 EACH BLST.W.DEV IH SCH (08:33)
[2020-05-09 08:36] VITALS: BP 118/84
[2020-05-09] MEDS: LOSARTAN POTASSIUM 50 MG TABLET PO SCH (08:36)
--- NOTE | 2020-05-09 10:15 | NUR ---
ENGAGEMENT MANAGER NOTES. PT DISCHARGE HOME. PT MEDICALLY CLEAR FOR DISCHARGE. ALL NEEDS, CARE, MEDICATIONS AND TREATMENT ADMINISTERED ANTICIPATED PER ORDER. DISCHARGE INSTRUCTIONS PROVIDED, PT VERBALIZED UNDERSTANDING. PT DISCHARGED HOME WITH DME-OXYGEN FOR HOME USE. BELONGINGS ACCOUNTED FOR ,SIGNED AND GIVEN TO PT, PT TRANSPORTED OUT OF UNIT IN STABLE CONDITION BY TWO AMBULANCE PERSONNELS. [email or web address] PATRICE AWARE.
== END 2020-05-09 10:19 | disposition home or self-care (01) | DRG 177 ==
LOC: ER 14:00 → TRANSITION 17:59 → TELE1 22:54
PROVIDERS: ADMIT Family Medicine; ATTEND Family Medicine
PROC: XW033E5 Introduction of Remdesivir Anti-infective into Peripheral Vein, Percutaneous Approach, New Technology Group 5 (ICD-10-PCS; principal; 2020-04-24)
PROC: XW13325 Transfusion of Convalescent Plasma (Nonautologous) into Peripheral Vein, Percutaneous Approach, New Technology Group 5 (ICD-10-PCS; 2020-04-24)
DX: U07.1 COVID-19 (principal); J96.01 Acute respiratory failure with hypoxia; N17.0 Acute kidney failure with tubular necrosis; J12.82 Pneumonia due to coronavirus disease 2019; I10 Essential (primary) hypertension; E66.9 Obesity, unspecified; Z79.51 Long term (current) use of inhaled steroids; Z79.899 Other long term (current) drug therapy; D72.829 Elevated white blood cell count, unspecified; J44.9 Chronic obstructive pulmonary disease, unspecified
CPT/HCPCS: 36415; 36600; 71045-TC; 80048-TC; 80053-TC; 80061-TC; 80076-TC; 82248-TC; 82550-TC; 82728-TC; 82803-TC; 83605-TC; 83615-TC; 83735-TC; 83880; 84100-TC; 84484-TC; 85025-TC; 85378-TC; 85610-TC; 85730-TC; 86140-TC; 86850-TC; 87040-TC; 87081-TC; 94760-TC; 94761-TC; 94762-TC; 94799-TC; 97116-TC; 97530-TC; A4217; G0378; J1100; J1650; J2930; J7030; J7040; J7050; P9017-BL; U0003